=== PATIENT | male | born 1940 | race Caucasian/White ===

== ENCOUNTER 2016-10-02 12:24 | Emergency (ER) | payer MEDICARE ==
[~2016-10-02 12:24] MED LIST: ASPIR 8181 MG PO; B COMPLEX1 EAC1 PO; CARVEDILOL12.5 MG PO; DELTASONE DPS10 MG PO; LASIX20 MG PO; LIPITOR20 MG PO; LISINOPRIL20 MG PO; MSM1000 MG PO; MUCINEX100 MG PO; MULTIVITAMINS1 EAC1 PO; NITROSTAT0.4 MG SL; PLAVIX75 MG PO; POTASSIUM PO; SYNTHROID150 MCG PO; VITAMIN D35000 UNI1 PO; [UNRECOGNIZED DRUG - OTHER] PO
--- NOTE | 2016-10-14 08:25 | ER ---
ADMIT: 10/02/2016 RM/LOC: ER [facility] MR#: [id number] [address] [id number] EBEN JUAREZ [address] [place] [address] Emergency Room Report SEX: M AGE: 75 : 1940 DATE: 10/02/2016 ADDENDUM: A 75-year-old white male, coming in with a kind of bloating. Also he had a little cough. Exam is essentially negative, but he does have an umbilical hernia. This is not incarcerated or strangulated. CT scan of the abdomen shows diverticulosis, but diverticulitis, nothing otherwise acute. CBC and chemistries are otherwise negative as well. He has a paced rhythm. Discharged him home with instructions on changes in his diet to a diet that is more conducive for diverticulosis, and then follow up with Dr. Vee as needed. CONDITION ON DISCHARGE: Good. Horacio Galeano MD/ vicky JOB #: [id number] CC: Horacio Galeano MD, Attending Physician Kim Vee MD, Family Physician
== END 2016-10-02 16:11 | disposition home or self-care (01) ==
LOC: ER 12:24
DX: K42.9 Umbilical hernia without obstruction or gangrene (principal); K57.90 Diverticulosis of intestine, part unspecified, without perforation or abscess without bleeding; E78.5 Hyperlipidemia, unspecified; E03.9 Hypothyroidism, unspecified; I11.0 Hypertensive heart disease with heart failure; I50.9 Heart failure, unspecified; I48.91 Unspecified atrial fibrillation; Z79.01 Long term (current) use of anticoagulants; Z79.82 Long term (current) use of aspirin; Z79.899 Other long term (current) drug therapy; Z95.810 Presence of automatic (implantable) cardiac defibrillator